=== PATIENT | female | born 1955 | race Caucasian/White ===

== ENCOUNTER 2022-03-14 13:21 | Emergency (ER) | payer MEDICARE, OTHER, MEDICAID ==
[~2022-03-14] VITALS: Ht 180.3 cm; Wt 90.9 kg
[~2022-03-14 13:21] MED LIST: ASPI-1071 PO; ATOR20TA66 PO; FLUT1AER INH; IPRA3AMP9 NEB; LEVO175T7 PO; MACI10TA2 PO; OXYB5TAB16 PO; PANT40SU2 PO; PRED10TA23 PO; ROPI0.5T4 PO; SILD20TA2 PO
--- NOTE | 2022-03-14 13:38 | NUR ---
New ice pack provided for comfort. Warm blankets provided.
--- NOTE | 2022-03-14 13:41 | NUR ---
Pt has a bruise on abdomen, and multiple scabs on buttocks area.
--- NOTE | 2022-03-14 14:30 | NUR ---
Pt has a painful rash on R buttock and 1/3 of L buttock. Rash has multiple 2cm round red areas with dark edges.
[2022-03-14] MEDS ORDERED: HYDROcodone/acetaminophen 10/325mg tab PO ONE (16:20)
[2022-03-14] MEDS ORDERED: HYDR-3972 PO (18:13)
[2022-03-14 18:58] VITALS: BP 117/58
== END 2022-03-14 19:37 | disposition home or self-care (01) ==
LOC: ER 13:21
DX: R60.0 Localized edema (principal); I11.0 Hypertensive heart disease with heart failure; I50.9 Heart failure, unspecified; J44.9 Chronic obstructive pulmonary disease, unspecified; Z79.82 Long term (current) use of aspirin; Z79.899 Other long term (current) drug therapy
CPT/HCPCS: 93971; 99285

== ENCOUNTER 2022-04-01 10:54 | Emergency (ER) | payer MEDICARE, MEDICAID ==
[~2022-04-01 10:54] MED LIST changes: +HYDR-3972 PO; +etomidate 2mg/ml inj. ONE; +rocuronium bromide 100mg/10ml (10mg/ml) injection IV ONE
--- NOTE | 2022-04-01 10:55 | NUR ---
1055 ARRIVAL TO ROOM [facility] YESTERDAY FOUND BY NEIGHBOR THIS MORNING WITH AGONAL RESP UNRESPONSIVE GCS 3 BSG [address] FULL CODE PER FAMILY AT SCENE NARCAN GIVEN 1056 IJEL REMOVED PT GAGGING AND FROTHING AT MOUTH NPA PLACED PLACING PT ON NRB AT 15L WITH BITE GUARD IN PLACE
--- NOTE | 2022-04-01 10:59 | NUR ---
1100 PREPARING FOR INTUBATION 1101 20 ETOM 100 DIXON 20 RHAND 1102 POSITIVE COLOR CHANGE BILATERAL BREATH SOUNDS 7.0 TUBE 1105 18 FR OG BY JULIÁN
--- NOTE | 2022-04-01 11:10 | NUR ---
1110 PT PULSELESS CPR STARTED 1111 FIRST EPI GIVEN 1112 PULE CHECK PEA PT PULSELESS AMP OF BICARB RIGHT HAND 1113 GRAM OF CALCIUM GIVEN EPI GIVEN 1114 PULSE CHECK PEA CONTINUED 1115 2 GRAMS MAG 1116 PULSE CHECK EPI GIVEN PEA CPR CONTINUED 1117 CALCIUM GIVEN 1118 PULSE CHECK VTACH SHOCKING AT 200 1118 VTACH WITH PULSE SHOCK AT 200 FOR SECOND TIME PT PULSELESS PEA CPR RESUMED 1119 EPI GIVEN 1120 PULSE CHECK PEA CPR RESUMED 1121 EPI GIVEN 1122 PULSE CHECK PEA CPR RESUMED 1123 BICARB GIVEN 1124 PULSE CHECK PEA CPR RESUMED 1125 250 SYNTHROID GIVEN EPI GIVEN 1126 PULSE CHECK PEA CPR CONTINUED 1127 TOD
[2022-04-01] MEDS ORDERED: LEVOTHYROXINE SODIUM 100 MCG/5 ML injection IV ONE (11:25)
--- NOTE | 2022-04-01 12:24 | NUR ---
Late Entry PT arrived via EMS with IGel inplace, pulses present on arrival, to bedside, removed IGEL and placed pt on NRB mask with agonal respiration noted, RT set up for intubation. MD intubated on first attempt with 7.0 ETT secure 23cm at teeth, bilateral equal bs, positive ETCO2 noted. RT assist ventilations, pt became pulseless, continue to assist ventilations via ambu bag. NO rosc code called at 1127. Addendum: 04/01/22 at 1230 by Damaris Pires RT Amended: Links added.
== END 2022-04-02 06:28 ==
LOC: ER 10:54
DX: I46.9 Cardiac arrest, cause unspecified (principal); I11.0 Hypertensive heart disease with heart failure; I50.9 Heart failure, unspecified; I27.20 Pulmonary hypertension, unspecified; J44.9 Chronic obstructive pulmonary disease, unspecified; E78.5 Hyperlipidemia, unspecified; E03.9 Hypothyroidism, unspecified; Z72.89 Other problems related to lifestyle; Z79.82 Long term (current) use of aspirin; Z79.899 Other long term (current) drug therapy
CPT/HCPCS: 71045; 92950; 93005; 94799; 99285; J3490; 94760